=== PATIENT | female | born 1960 | race Caucasian/White ===

== ENCOUNTER 2020-07-15 14:22 | Emergency (ER) | payer MEDICAID, SELFPAY ==
--- NOTE | 2020-07-15 14:46 | ED.EAR ---
HPI - Ear Problem General Chief complaint: General Medical Stated complaint: neck pain Time Seen by Provider: 07/15/20 14:46 Source: patient Mode of arrival: ambulatory Limitations: no limitations History of Present Illness HPI Narrative: patient with jaw and throat pain for one month, here today because she is worse. no fever, no cough Has had bleeding from her month and tongue. Duration: constant Severity: mild Exacerbating factors: chewing Discharge from ear: no Treatment prior to arrival: none Related Data Allergies Allergy/AdvReac Type Severity Reaction Status Date / Time aspirin [ASPIRIN] Allergy Unknown UNKNOWN Verified 07/15/20 14:58 chlordiazepoxide Allergy Unknown SHAKEY Verified 07/15/20 14:58 [From LIBRIUM] DETERGENTS Allergy Mild ITCHY Uncoded 06/17/20 17:07 Review of Systems Constitutional: Constitutional: Reports no additional constitutional complaints Eyes: Eyes: Reports no additional eye complaints ENT: Denies dizziness Cardiovascular: Cardiovascular: Reports no additional cardiovascular complaints Respiratory: Respiratory: Reports as per HPI Gastrointestinal: Gastrointestinal: Reports no additional gastrointestinal complaints Genitourinary: Genitourinary: Reports no additional female genitourinary complaints Musculoskeletal: Musculoskeletal: Reports no additional musculoskeletal complaints Integumentary/Breasts: Skin/Breast: Denies rash Neurologic: Reports system reviewed and no additional complaints, except as documented, Denies dizziness and Denies Sensory deficit (Neuro) Psychiatric: Psychiatric: Denies anxiety [facility] Past Medical History Medical History (Updated 07/15/20 @ 15:06 by Cooper Ferguson MD) Cirrhosis ETOH abuse GERD (gastroesophageal reflux disease) Social History Social History (Updated 07/15/20 @ 14:56 by Cooper Ferguson MD) Alcohol intake: former Smoking Status: Current some day smoker Physical Exam Vital Signs: Vital Signs: Vital Signs Temp Pulse Resp BP Pulse Ox 07/15/20 15:00 97.9 F 100 16 144/71 H 99 Body Mass Index 32.4 Const: Other: Looking older than stated age Nutritional Appearance: average body habitus Orientation/consciousness: oriented to person and patient oriented x3 Limitations: no limitations HENMT: Head: Yes normal to inspection Ears: external ears normal General nose exam: Normal external nose present Throat: Yes other (patient with lesion on the right side of tongue that is friable and bleedin) Eyes: General: appearance normal, both eyes and all related structures Neck: Other: supple, There is hard right sided submandibular lymph node Neck: Yes normal visual inspection Chest: Chest palpation & inspection: normal inspection of the chest Resp: Auscultation: clear to auscultation bilaterally Cardio: Jugular venous distension: no JVD Rate: regular rate Rhythm: regular rhythm Heart sounds: S1 normal heart sound present and S2 normal heart sound present GI: Inspection: Yes normal to inspection Palpation (GI): Soft to palpation, nontender and No hepatosplenomegaly present Auscultation: normal bowel sounds : General: Yes no CVA tenderness Back/Spine/Pelvis: Back: no CVA tenderness Skin: General skin exam: no rashes or lesions noted Neuro: General: oriented to person and patient oriented x3 Cranial nerves: Yes CN's II-XII intact bilaterally Motor exam (neuro): 5/5 motor strength present throughout Sensory Exam: No Sensory deficit (Neuro) Extrem: General: Yes normal to inspection Psych: Appearance: grossly normal MDM - Ear MDM Narrative Medical decision making narrative: patient with bleeding tongue lesion and hard submandibular lymph node concerned about malignancy will refer to Dr. Zhao for ENT Discharge Plan Discharge Clinical Impression: Cancer of tongue, Cancer of pharynx Patient Disposition: Home, Self-Care Additional Instructions: Must see Dr. Zhao as soon as possible Referrals: Eulalio Anne [Physician] - 2 days (call urgently for consultation about concern over tongue and pharynx ca) Iris Otoole MD [Primary Care Provider] - 2 days (concerned about tongue and pharynx cancer needs emergent follow up)
[2020-07-15 15:00] VITALS: BP 144/71; PULSE 100; RESP 16; TEMP 36.6; O2SAT 99; BMI 32.4
== END 2020-07-15 16:12 | disposition home or self-care (01) ==
LOC: HO.ED 15:17
PROVIDERS: Emergency Provider Emergency Medicine; PCP Family Medicine
DX: D49.0 Neoplasm of unspecified behavior of digestive system (principal); F17.200 Nicotine dependence, unspecified, uncomplicated; F10.10 Alcohol abuse, uncomplicated; K21.9 Gastro-esophageal reflux disease without esophagitis; K74.60 Unspecified cirrhosis of liver
CPT/HCPCS: 99283; 99284

== ENCOUNTER 2020-07-22 13:02 | Outpatient (REF) | payer MEDICAID, SELFPAY ==
--- NOTE | 2020-07-22 13:04 | CT_ITS ---
EXAMINATION: CT SOFT TISSUE NECK WITHOUT AND WITH CONTRAST CLINICAL INFORMATION: Localized enlarged lymph node. COMPARISON: None TECHNIQUE: Before and after the intravenous administration of 65 mL of Omnipaque 350 intravenous contrast helical imaging was performed in the axial plane with generation of coronal and sagittal reformatted images. This CT examination was performed using dose optimization techniques as appropriate, variously including the following: *Automated exposure control *Adjustment of mA and/or kV according to patient size (this includes techniques or standardized protocols for targeted exams where dose is matched to indication/reason for exam; i.e. extremities or head) *Use of iterative reconstruction technique DLP: 363 mGy-cm FINDINGS: The large lobulated hypodense mass in the posterior base of the tongue extending posterior floor of the tongue. The ill-defined mass with enhancing thick wall measures approximately 3.6 x 3.6 cm and lies predominately in the right tongue and highly suspicious for tongue cancer. The lesion extends to the left of midline with mild deviation of the midline septum to the left. There is mild mass effect on the posterior oropharynx. Large abnormal lymph node is seen in the right level 3 lymph node measuring 2.9 x 2.4 cm with central hypodensity. Also visualized is prominent right submental lymph node measuring 1 cm. There are smaller but abnormal lymph nodes posterior to right jugular vein level 3. No additional lymph nodes seen. The laryngeal structures are normal. The parapharyngeal fat is preserved. The carotid sheath vasculature opacify normally. No extra mucosal soft tissue mass or fluid collection is seen. No retropharyngeal fluid collection is seen. The thyroid gland is normal. The superior mediastinum is unremarkable. The lung apices are clear. The mastoid air cells and visualized portions of the paranasal sinuses are well aerated. The temporomandibular joints are normal. No periapical disease is identified. No osseous abnormalities are seen. The imaged portions of the brain parenchyma are unremarkable. CT/CT soft tissue neck wo/w con IMPRESSION: Large hypodense/necrotic mass with irregular thick kent at the base of right tongue with abnormal metastatic right neck lymphadenopathy. The lymph node is easily accessible by ultrasound-guided biopsy. Postbiopsy correlation with MRI neck with contrast can be performed.
[2020-07-22 13:28] LABS: Blood Urea Nitrogen 6 mg/dL (9-16); Estimated Glomerular Filt Rate > 60
[2020-07-22] MEDS: iohexoL 350 MG/ML 100 ML INFUS..BTL 60 ML IV (14:56)
== END 2020-07-22 13:03 | disposition home or self-care (01) ==
LOC: HO.CT 13:02
PROVIDERS: PCP Family Medicine; Visit Provider Family Medicine
DX: R59.0 Localized enlarged lymph nodes (principal)
CPT/HCPCS: 70492; 82565; 84520

== ENCOUNTER → 2020-09-10 09:46 | Outpatient (BNVA) | payer MEDICAID, SELFPAY | PROVIDERS: PCP Family Medicine; Referring Provider Family Medicine; Visit Provider Internal Medicine Gastroenterology | DX: Z76.89 Persons encountering health services in other specified circumstances (principal) ==

== ENCOUNTER 2020-10-05 11:34 | Outpatient (REF) | payer MEDICAID, SELFPAY ==
--- NOTE | 2020-10-05 11:39 | MM_ITS ---
EXAMINATION: MM SCREENING DIGITAL BREAST TOMOSYNTHESIS, BILATERAL CLINICAL INFORMATION: Screening. Asymptomatic. The lifetime risk of breast cancer based on the Tyrer-Cuzick Model is 12%. COMPARISON: Mammography: 02/04/2019, 12/14/2017, 11/29/2016 TECHNIQUE: Digital breast tomosynthesis is performed in both the craniocaudal and mediolateral oblique views along with computer-aided detection (CAD). Synthesized 2D images are generated from the tomosynthesis. Additional right cleavage view is provided. FINDINGS: There are scattered areas of fibroglandular density (ACR BI-RADS breast composition Category b). There are no significant masses, abnormal calcifications, or other abnormalities. Breast tissue composition borders on heterogeneously dense. There are scattered bilateral punctate round and bilateral vascular calcifications again seen. A port is seen overlying the right axilla on the MLO view. MM/MM tomosynthesis screening BI IMPRESSION: No mammographic evidence of malignancy. ASSESSMENT: BI-RADS 2: Benign RECOMMENDATION: Routine annual mammography screening. This patient's information was entered into a reminder system with a target due date for their next mammogram.
== END 2020-10-05 11:35 | disposition home or self-care (01) ==
LOC: HO.MAMMO 11:34
PROVIDERS: PCP Family Medicine; Visit Provider Family Medicine
DX: Z12.31 Encounter for screening mammogram for malignant neoplasm of breast (principal)
CPT/HCPCS: 77063; 77067

== ENCOUNTER 2020-10-06 17:51 | Emergency (ER) | payer MEDICAID, SELFPAY ==
[2020-10-06 19:44] VITALS: BP 117/64; PULSE 85; RESP 16; TEMP 36.6; O2SAT 98
== END 2020-10-06 19:25 | disposition left against medical advice (07) ==
PROVIDERS: Emergency Provider Emergency Medicine; PCP Family Medicine
DX: K13.79 Other lesions of oral mucosa (principal)
CPT/HCPCS: 99282

== ENCOUNTER 2020-11-26 12:00 | Outpatient (REF) | payer MEDICAID, SELFPAY ==
[2020-11-26 12:28] LABS: MANUAL DIFF FLAG NO
[2020-11-26 12:32] LABS: Basophils Percent Auto 0.2 % (0-2); Eosinophils Absolute Auto 0.1 X10*3/uL (0.0-0.4); Eosinophils Percent Auto 1.1 % (0-4); Hematocrit 31.9 % (37-47); Hemoglobin 10.5 g/dl (12.0-16.0); Imm Gran Abs Auto 0.01 X10*3/uL (0.00-0.03); Imm Gran Pct Auto 0.2 % (0.0-0.4); Lymphocytes Absolute Auto 1.2 X10*3/uL (1.2-4.9); Lymphocytes Percent Auto 27.1 % (20-40); Mean Corpuscular HGB Conc 32.9 g/dl (31.0-35.0); Mean Corpuscular Hemoglobin 34.3 pg (27.0-33.0); Mean Corpuscular Volume 104.2 fL (80-98); Mean Platelet Volume 10.6 fL (9.4-12.3); Monocytes Absolute Auto 0.6 X10*3/uL (0.1-1.2); Monocytes Percent Auto 13.8 % (2-11); Neutrophils Absolute Auto 2.5 X10*3/uL (2.0-8.3); Neutrophils Percent Auto 57.6 % (45-73); Platelet Count 133 X10*3/uL (160-400); Red Blood Count 3.06 X10*6/uL (4.20-5.50); Red Cell Distribution Width 17.9 % (11.0-16.0); White Blood Count 4.4 X10*3/uL (4.8-10.8)
[2020-11-26 12:49] LABS: INTERNATIONAL NORM RATIO 1.6 (0.9-1.1); Prothrombin Time 19.5 SEC (10.8-13.0)
[2020-11-26 12:50] LABS: Ammonia 103 umol/L (13-55)
[2020-11-26 13:07] LABS: Albumin Level 2.5 g/dL (3.5-5.0); Alkaline Phosphatase 86 U/L (39-117); Aspartate Amino Transferase 76 U/L (5-31); Bilirubin Total 3.3 mg/dL (0.0-1.0); Blood Urea Nitrogen 10 mg/dL (9-16); Calcium 8.4 mg/dL (8.4-10.2); Estimated Glomerular Filt Rate > 60; Glucose Random 175 mg/dL (60-115); Iron 70 mcg/dL (30-160); Magnesium 1.6 mg/dL (1.6-2.6); Percent Iron Saturation 25 % (15-50); Total Iron Binding Capacity 276 mcg/dL (228-428); Total Protein 6.2 g/dL (6.5-8.0); Unsaturated Iron Binding 206 ug/dL
[2020-11-26 13:18] LABS: Alanine Aminotransferase 11 U/L (0-31); Anion Gap 10 (12-20); Carbon Dioxide 27 mmol/L (22-29); Chloride 105 mmol/L (96-108); Potassium 4.1 mmol/L (3.3-5.1); Sodium 138 mmol/L (135-145)
[2020-11-26 13:26] LABS: Ferritin 78 ng/mL (10-250)
[2020-11-26 14:59] LABS: Folate > 20.0 ng/mL (> or = 4.0); Vitamin B12 > 2000 pg/mL (200-900)
== END 2020-11-26 12:01 | disposition home or self-care (01) ==
LOC: HO.LAB 12:00
PROVIDERS: PCP Family Medicine; Visit Provider Family Medicine
DX: C02.9 Malignant neoplasm of tongue, unspecified (principal); E63.9 Nutritional deficiency, unspecified; K74.60 Unspecified cirrhosis of liver; K76.9 Liver disease, unspecified
CPT/HCPCS: 36415; 80053; 82140; 82306; 82607; 82728; 82746; 83540; 83735; 84134; 85025; 85610; 85730

== ENCOUNTER → 2020-12-17 09:46 | Outpatient (BNVA) | payer MEDICAID, SELFPAY | PROVIDERS: PCP Family Medicine; Visit Provider Internal Medicine Gastroenterology ==